=== PATIENT | male | born 1945 | race Caucasian/White ===

== ENCOUNTER 2018-12-26 13:58 | Outpatient (CLI) | payer MEDICARE, OTHER | END 2018-12-26 23:59 | disposition home or self-care (01) | LOC: RAD 13:58 | PROVIDERS: ATTEND Surgery | DX: R13.12 Dysphagia, oropharyngeal phase (principal); K21.9 Gastro-esophageal reflux disease without esophagitis | CPT/HCPCS: 74230 ==

== ENCOUNTER 2023-10-17 18:28 | Emergency (ER) | payer MEDICARE, OTHER ==
[~2023-10-17] VITALS: Ht 182.9 cm; Wt 50.0 kg
[~2023-10-17 18:28] MED LIST: adenosine 3mg/ml 2ml vial IV ONE
== END 2023-10-17 21:31 ==
LOC: ER 18:28
DX: I46.9 Cardiac arrest, cause unspecified (principal); E11.9 Type 2 diabetes mellitus without complications
CPT/HCPCS: 31500; 92950; 99291; J0153